=== PATIENT | female | born 1960 | race Caucasian/White ===

== ENCOUNTER 2020-05-22 17:14 | Emergency (ER) | payer OTHER ==
[~2020-05-22] VITALS: Ht 175.3 cm; Wt 90.7 kg
[2020-05-22 17:42] LABS: HEMATOCRIT 43.1 % (37.0-47.0); HEMOGLOBIN 14.6 gm/dL (12.0-15.0); MCH 30.7 pg (26.0-34.0); MCHC 33.8 g/dL (28.0-37.0); MCV 90.8 fL (80.0-100.0); RBC 4.75 mil/uL (4.20-5.00); RDW 14.2 % (10.5-14.5); WBC 7.6 thou/uL (4.0-11.0)
[2020-05-22] MEDS ORDERED: CELECOXIB100 MG PO (17:45)
[2020-05-22] MEDS ORDERED: AMBIEN 10 MG TA10 MG PO (17:45)
[2020-05-22] MEDS ORDERED: NEURONTIN100 MG PO (17:45)
[2020-05-22] MEDS ORDERED: CYMBALTA30 MG PO (17:46)
[2020-05-22] MEDS ORDERED: LEVO-T25 MCG PO (17:47)
[2020-05-22] MEDS ORDERED: OXYCODONE HCL5 MG PO (17:47)
[2020-05-22] MEDS ORDERED: OMEPRAZOLE 20 M20 M1 PO (17:47)
[2020-05-22 18:11] LABS: ALBUMIN 3.9 g/dL (3.4-5.0); ANION GAP 16 mmol/L (7-16); BUN 13 mg/dL (7-18); CALCIUM 9.1 mg/dL (8.5-10.1); CHLORIDE 102 mmol/L (98-107); CO2 22 mmol/L (21-32); GLUCOSE 182 mg/dL (74-106); LIPASE 26 U/L (73-393); SGOT 66 U/L (15-37); SGPT 77 U/L (14-59); SODIUM 140 mmol/L (136-145); TOTAL BILIRUBIN 0.8 mg/dL (0.2-1.0); TOTAL PROTEIN 7.8 g/dL (6.4-8.2); TROPONIN-I <0.06 ng/mL (<0.06)
[2020-05-22 18:15] LABS: URINE BLOOD NEGATIVE (Negative); URINE CLARITY CLEAR; URINE COLOR YELLOW; URINE GLUCOSE-RANDOM* NEGATIVE (Negative); URINE KETONES 3+ (Negative); URINE LEUKOCYTES-REFLEX NEGATIVE (Negative); URINE NITRITE-REFLEX NEGATIVE (Negative); URINE PROTEIN (DIPSTICK) 1+ (Negative); URINE SPECIFIC GRAVITY >= 1.030 (1.005-1.035); URINE UROBILINOGEN 0.2 E.U./dl (0.2-1.0)
[2020-05-22 18:16] LABS: POTASSIUM 2.8 mmol/L (3.5-5.1)
[2020-05-22 18:17] LABS: ICTOTEST (BILI CONFIRMATORY) Negative (Negative); URINE BILIRUBIN NEGATIVE (Negative)
[2020-05-22 18:18] LABS: URINE REDUCING SUBSTANCE NEGATIVE
[2020-05-22 18:26] LABS: BACTERIA-REFLEX >30 Many /HPF (None Seen); CASTS None Seen /LPF (None Seen); CRYSTALS None Seen /LPF (None Seen); MUCUS 4-6 Moderate strn/LPF (None Seen); SQUAMOUS >10 Many /LPF (0-3); URINE RBC None Seen /HPF (0-2); URINE WBC-REFLEX 0-5 Rare /HPF (0-5)
[2020-05-22] MEDS ORDERED: BIOTIN1000 MCG PO (19:26)
[2020-05-22 21:30] VITALS: BP 141/74
[2020-05-22] MEDS ORDERED: ZOFRAN ODT4 MG PO (21:33)
[2020-05-22] MEDS ORDERED: KLOR-CON M2020 MEQ PO (21:33)
[2020-05-22] MEDS ORDERED: BENTYL 10 MG CA10 M1 PO (21:33)
--- NOTE | 2020-05-25 07:35 | EKG ---
[facility] [place] [address] ELECTROCARDIOGRAM REPORT Name: COLE PINEDA Room #: BYRON Corea#: [id number] Admission: 05/22/20 Attend Phys: Discharge: 05/22/20 Date of : 56 Report #: [id number] [facility] ED Test Date: 2020-05-22 Test Time: 17:36:39 Pat Name: COLE PINEDA Department: Room: Gender: F Presser Cotton Ginning: REYES : 1960 Requested By: Heidy Bianchi Order Number: [id number] MD: Ryna Hall Measurements Intervals [place] Rate: 96 P: 51 NC: 174 QRS: -18 QRSD: 104 T: 45 QT: 372 QTc: 471 Interpretive Statements Sinus rhythm Ventricular premature complex Aberrant conduction of SV complex(es) Borderline left axis deviation No previous ECG available for comparison Electronically Signed On 05-25-2020 7:35:56 CLIENT EVALUATOR by Ryan Hall [email or web address] <ELECTRONICALLY SIGNED> By: Ryan Hall MD, [facility] 05/25/20 0735 [id number] Ryan Hall MD, FACC /EPI
--- NOTE | 2020-05-25 07:36 | EKG ---
[facility] [place] [address] ELECTROCARDIOGRAM REPORT Name: COLE PINEDA Room #: BYRON Corea#: [id number] Admission: 05/22/20 Attend Phys: Discharge: 05/22/20 Date of : 56 Report #: [id number] [facility] ED Test Date: 2020-05-22 Test Time: 17:39:36 Pat Name: COLE PINEDA Department: Room: Gender: F Fabric Designer: REYES : 1960 Requested By: Heidy Bianchi Order Number: [id number] MD: Ryan Hall Measurements Intervals [place] Rate: 98 P: DE: QRS: -23 QRSD: 109 T: 50 QT: 344 QTc: 440 Interpretive Statements NSR Borderline left axis deviation Borderline T wave abnormalities Artifact in lead(s) II,aVR,aVL,aVF,V1 No previous ECG available for comparison Electronically Signed On 05-25-2020 7:36:06 SIPHON OPERATOR by Ryan Hall [email or web address] <ELECTRONICALLY SIGNED> By: Ryan Hall MD, [facility] 05/25/20 0736 1739 38 Ryan Hall MD, FACC /EPI
== END 2020-05-22 22:00 | disposition home or self-care (01) ==
LOC: ER 17:14
PROVIDERS: Nurse Practitioner Family
DX: K52.9 Noninfective gastroenteritis and colitis, unspecified (principal); E87.6 Hypokalemia; Z79.899 Other long term (current) drug therapy; Z88.0 Allergy status to penicillin; Z20.822 Contact with and (suspected) exposure to COVID-19